=== PATIENT | female | born 1940 | race Caucasian/White ===

== ENCOUNTER 2017-06-07 10:48 | Emergency (ER) | payer OTHER ==
[~2017-06-07] VITALS: Ht 152.4 cm; Wt 34.0 kg
[~2017-06-07 10:48] MED LIST: AMOXICILLIN500 MG PO; TYLENOL WITH C1 EACH PO
[2017-06-07 11:31] LABS: EOSINOPHIL (%) 0 % (0-5); HEMATOCRIT 42.6 % (36.0-46.0); IMMATURE GRANULOCYTE (%) 0.5 % (0.0-0.7); LYMPHOCYTE COUNT 0.5 K/uL (1.0-2.8); MCH 30.4 PG (29.0-34.0); MCHC 33.3 G/DL (30.0-36.0); MCV 91.2 FL (83-99); MEAN PLAT.VOLUME 11.7 uM^3 (9.5-12.4); MONOCYTE (%) 1.7 % (3-12); MONOCYTE COUNT 0.2 K/uL (0-0.8); NEUTROPHIL (%) 91.6 % (45-76); PLATELET COUNT 130 K/uL (156-360); RBC DIS.WIDTH-CV 11.9 % (11.8-14.6); RBC DIS.WIDTH-SD 39.8 % (39-53); RED BLOOD COUNT 4.67 M/uL (3.80-5.20); WHITE BLOOD COUNT 8.8 K/uL (4.1-10.2)
[2017-06-07 11:41] LABS: CHLORIDE 100 mEq/L (99-109); POTASSIUM 4.3 mEq/L (3.7-5.4); SODIUM 141 mEq/L (136-147)
[2017-06-07 11:43] LABS: GLUCOSE 220 mg/dL (70-99)
[2017-06-07 11:44] LABS: ANION GAP 17 MEQ/L (2-14)
[2017-06-07 11:45] LABS: TOTAL BILIRUBIN 0.5 mg/dL (0.0-1.0)
[2017-06-07 11:46] LABS: ALKALINE PHOSPHATASE 71 IU/L (3-129)
[2017-06-07 11:47] LABS: GFR ESTIMATE (CALCULATED) > 59 mL/min/
[2017-06-07 11:48] LABS: UREA NITROGEN (BUN) 21 mg/dL (9-23)
[2017-06-07 11:50] LABS: LIPASE 8 U/L (1.0-51.0)
[2017-06-07 12:34] LABS: BACTERIA NONE SEEN /HPF; EPITHELIAL CELLS RARE /HPF; MUCUS TRACE /LPF; RED BLOOD CELLS 0-5 /HPF (0-5); UNCLASSIFIED CASTS 0-5 /LPF; WHITE BLOOD CELLS 0-5 /HPF (0-5)
[2017-06-07] MEDS ORDERED: ZOFRAN4 MG PO (15:03)
[2017-06-07 15:25] VITALS: BP 147/76
[2017-06-07] MEDS ORDERED: ZETIA10 MG PO (22:08)
[2017-06-07] MEDS ORDERED: IMDUR30 MG PO (22:08)
[2017-06-07] MEDS ORDERED: PRAVACHOL80 MG PO (22:08)
[2017-06-07] MEDS ORDERED: LISINOPRIL5 MG PO (22:08)
[2017-06-07] MEDS ORDERED: LO-DOSE ASPIRIN81 M1 PO (22:08)
[2017-06-07] MEDS ORDERED: CARDIZEM CD,CA120 MG PO (22:08)
[2017-06-07] MEDS ORDERED: NITROSTAT0.4 MG SL (22:09)
== END 2017-06-07 15:48 | disposition home or self-care (01) ==
LOC: EME 10:48
PROVIDERS: Emergency Medicine
DX: R11.2 Nausea with vomiting, unspecified (principal); R10.31 Right lower quadrant pain; R10.32 Left lower quadrant pain; M54.9 Dorsalgia, unspecified; Z95.1 Presence of aortocoronary bypass graft; Z72.0 Tobacco use
CPT/HCPCS: 74177; 80053; 81015; 83690; 85025; 99281; 99285; J2270; J2405; J7040

== ENCOUNTER 2017-06-07 19:44 | Inpatient (IN) | payer OTHER ==
[~2017-06-07] VITALS: Ht 144.8 cm; Wt 46.0 kg
[~2017-06-07 19:44] MED LIST changes: +ZOFRAN4 MG PO
[2017-06-07 20:47] LABS: HEMATOCRIT 41.2 % (36.0-46.0); MCH 30.1 PG (29.0-34.0); MCV 91.2 FL (83-99); MEAN PLAT.VOLUME 11.3 uM^3 (9.5-12.4); PLATELET COUNT 140 K/uL (156-360); RBC DIS.WIDTH-CV 12.1 % (11.8-14.6); RBC DIS.WIDTH-SD 40.6 % (39-53); RED BLOOD COUNT 4.52 M/uL (3.80-5.20)
[2017-06-07 20:57] LABS: CHLORIDE 103 mEq/L (99-109); POTASSIUM 3.7 mEq/L (3.7-5.4); SODIUM 140 mEq/L (136-147)
[2017-06-07 20:58] LABS: GLUCOSE 128 mg/dL (70-99)
[2017-06-07 21:00] LABS: ANION GAP 14 MEQ/L (2-14)
[2017-06-07 21:02] LABS: GFR ESTIMATE (CALCULATED) > 59 mL/min/
[2017-06-07 21:03] LABS: UREA NITROGEN (BUN) 18 mg/dL (9-23)
[2017-06-07] MEDS ORDERED: IMDUR30 MG PO (22:08)
[2017-06-07] MEDS ORDERED: LO-DOSE ASPIRIN81 M1 PO (22:08)
[2017-06-07] MEDS ORDERED: LISINOPRIL5 MG PO (22:08)
[2017-06-07] MEDS ORDERED: PRAVACHOL80 MG PO (22:08)
[2017-06-07] MEDS ORDERED: CARDIZEM CD,CA120 MG PO (22:08)
[2017-06-07] MEDS ORDERED: ZETIA10 MG PO (22:08)
[2017-06-07] MEDS ORDERED: NITROSTAT0.4 MG SL (22:09)
[2017-06-08] VITALS (7 sets, daily range): BP systolic 132–158; BP diastolic 70–88
[2017-06-08 06:48] LABS: ALKALINE PHOSPHATASE 51 IU/L (3-129); DIRECT BILIRUBIN 0.2 mg/dL (0.0-0.3); TOTAL BILIRUBIN 0.5 MG/DL (0.0-1.0)
[2017-06-09] VITALS (9 sets, daily range): BP systolic 74–128; BP diastolic 49–79
[2017-06-09 06:46] LABS: EOSINOPHIL (%) 0 % (0-5); HEMATOCRIT 45.3 % (36.0-46.0); IMMATURE GRANULOCYTE (%) 0.3 % (0.0-0.7); IMMATURE GRANULOCYTE COUNT 0.1 K/uL; LYMPHOCYTE COUNT 0.4 K/uL (1.0-2.8); MCHC 33.3 G/DL (30.0-36.0); MEAN PLAT.VOLUME 11.8 uM^3 (9.5-12.4); MONOCYTE (%) 7.7 % (3-12); MONOCYTE COUNT 1.4 K/uL (0-0.8); NEUTROPHIL (%) 89.6 % (45-76); PLATELET COUNT 173 K/uL (156-360); RBC DIS.WIDTH-CV 12.9 % (11.8-14.6); RBC DIS.WIDTH-SD 44.2 % (39-53); RED BLOOD COUNT 4.87 M/uL (3.80-5.20); WHITE BLOOD COUNT 17.9 K/uL (4.1-10.2)
[2017-06-09 07:08] LABS: ANION GAP 11 MEQ/L (2-14); CHLORIDE 107 MEQ/L (99-109); GFR ESTIMATE (CALCULATED) 46 mL/min/; GLUCOSE 176 mg/dL (70-99); SAMPLE HEMOLYSIS CHECK 0; SAMPLE ICTERIC CHECK 0; SAMPLE LIPEMIA CHECK 0; SODIUM 140 MEQ/L (136-147); UREA NITROGEN (BUN) 35 mg/dL (9-23)
[2017-06-09 23:05] LABS: METH RESISTANT S AUREUS PCR NEGATIVE (NEGATIVE)
[2017-06-09 23:07] LABS: PROBE CHECK PASS; SPECIMEN PROCESSING CONTROL PASS
[2017-06-10] VITALS (25 sets, daily range): BP systolic 80–125; BP diastolic 42–66
[2017-06-10 05:14] LABS: HEMATOCRIT 43.5 % (36.0-46.0); MCH 31.8 PG (29.0-34.0); MCHC 34.3 G/DL (30.0-36.0); MCV 92.8 FL (83-99); RBC DIS.WIDTH-CV 13.2 % (11.8-14.6); RBC DIS.WIDTH-SD 44.4 % (39-53); RED BLOOD COUNT 4.69 M/uL (3.80-5.20); WHITE BLOOD COUNT 8.8 K/uL (4.1-10.2)
[2017-06-10 05:29] LABS: TROP-I INTERPRETATION POSITIVE; TROPONIN-I 1.63 ng/mL (0.0-0.30)
[2017-06-10 05:40] LABS: ABS NEUTROPHIL COUNT 6.6; ANION GAP 8 MEQ/L (2-14); ANISOCYTOSIS 1+; BAND NEUTROPHILS 47.8 % (0-8.0); BURR CELLS 1+; CHLORIDE 109 MEQ/L (99-109); EOSINOPHIL ABS CT 0; GFR ESTIMATE (CALCULATED) 57 mL/min/; INSTRUMENT ABS NEUTROPHIL CT 7.7 K/uL; LYMPHOCYTES 0.9 % (15.0-45.0); MEAN PLAT.VOLUME 12.5 uM^3 (9.5-12.4); METAMYELOCYTES 19.8 %; MICROCYTOSIS 1+; MYELOCYTES 2.7 %; PLAT.SUFFICIENCY DECREASED; POIKILOCYTOSIS 1+; POTASSIUM 4.3 MEQ/L (3.7-5.4); SAMPLE HEMOLYSIS CHECK 0; SAMPLE ICTERIC CHECK 0; SAMPLE LIPEMIA CHECK 0; SODIUM 139 MEQ/L (136-147); SPHEROCYTES 1+; UREA NITROGEN (BUN) 35 mg/dL (9-23)
[2017-06-10 05:41] LABS: GLUCOSE 108 mg/dL (70-99)
[2017-06-10 06:00] LABS: PLATELET COUNT 118 K/uL (156-360)
[2017-06-10 13:00] LABS: TROP-I INTERPRETATION POSITIVE; TROPONIN-I 1.98 ng/mL (0.0-0.30)
[2017-06-10 20:32] LABS: TROP-I INTERPRETATION POSITIVE; TROPONIN-I 1.63 ng/mL (0.0-0.30)
[2017-06-11] VITALS (22 sets, daily range): BP systolic 74–118; BP diastolic 41–65
[2017-06-11 06:02] LABS: ANION GAP 7 MEQ/L (2-14); CHLORIDE 115 MEQ/L (99-109); GFR ESTIMATE (CALCULATED) > 59 mL/min/; MAGNESIUM 2.3 mg/dl (1.3-2.7); SAMPLE HEMOLYSIS CHECK 0; SAMPLE ICTERIC CHECK 0; SAMPLE LIPEMIA CHECK 0; SODIUM 143 MEQ/L (136-147); UREA NITROGEN (BUN) 28 mg/dL (9-23)
[2017-06-11 06:03] LABS: GLUCOSE 48 mg/dL (70-99)
[2017-06-11 06:37] LABS: HEMATOCRIT 33.4 % (36.0-46.0); MCH 30.8 PG (29.0-34.0); MCHC 33.2 G/DL (30.0-36.0); MCV 92.8 FL (83-99); RBC DIS.WIDTH-CV 13.3 % (11.8-14.6); RBC DIS.WIDTH-SD 45.6 % (39-53); WHITE BLOOD COUNT 11.6 K/uL (4.1-10.2)
[2017-06-11 06:57] LABS: ABS NEUTROPHIL COUNT 10.8; ANISOCYTOSIS 1+; BURR CELLS 3+; EOSINOPHIL ABS CT 0; INSTRUMENT ABS NEUTROPHIL CT 10.1 K/uL; LYMPHOCYTES 1.8 % (15.0-45.0); MACROCYTES 1+; MEAN PLAT.VOLUME 12.4 uM^3 (9.5-12.4); METAMYELOCYTES 2.6 %; MYELOCYTES 0.9 %; PLAT.SUFFICIENCY DECREASED; POIKILOCYTOSIS 1+
[2017-06-11 07:02] LABS: BAND NEUTROPHILS 25.4 % (0-8.0); PLATELET COUNT 74 K/uL (156-360); SEG.NEUTROPHILS 67.5 % (46.0-76.0)
[2017-06-11 07:06] LABS: POINT-OF-CARE METER ID UU13113748
[2017-06-11 07:46] LABS: POINT-OF-CARE METER ID UU13113748
[2017-06-11 11:04] LABS: BASE EXCESS 0 mEq/L (-3 to +3); BICARBONATE 23.6 mEq/L (22-26); CARBOXY HGB 1.9 % (0-5); METHEMOGLOBIN 1.9 % (0-1.5); PCO2 34 mm Hg (35-45); PO2 53 mm Hg (80-100); SITE RB; pH 7.45 (7.35-7.45)
[2017-06-11 11:05] LABS: COMMENTS - BLOOD GASES A+C+; DEVICE NC; O2 FLOW 2 L/MIN; TOTAL RESP RATE 22 resp/min
[2017-06-11 16:00] LABS: INTER. NORMALIZED RATIO 2.4; PROTHROMBIN TIME 27.6 SEC (10.2-12.9)
[2017-06-12] VITALS (24 sets, daily range): BP systolic 84–123; BP diastolic 40–60
[2017-06-12 12:57] LABS: ANION GAP 7 MEQ/L (2-14); CHLORIDE 117 MEQ/L (99-109); GFR ESTIMATE (CALCULATED) > 59 mL/min/; POTASSIUM 3.3 MEQ/L (3.7-5.4); SAMPLE HEMOLYSIS CHECK 0; SAMPLE ICTERIC CHECK 0; SAMPLE LIPEMIA CHECK 0; SODIUM 147 MEQ/L (136-147); UREA NITROGEN (BUN) 22 mg/dL (9-23)
[2017-06-12 13:00] LABS: GLUCOSE 185 mg/dL (70-99)
[2017-06-13] VITALS (21 sets, daily range): BP systolic 94–123; BP diastolic 44–61
[2017-06-13 05:52] LABS: HEMATOCRIT 31.5 % (36.0-46.0); MCH 29.4 PG (29.0-34.0); MCHC 31.4 G/DL (30.0-36.0); MCV 93.5 FL (83-99); NRBC (%) 0.1 /100 WBC (0-0); RBC DIS.WIDTH-CV 14.3 % (11.8-14.6); RBC DIS.WIDTH-SD 49.3 % (39-53); RED BLOOD COUNT 3.37 M/uL (3.80-5.20); WHITE BLOOD COUNT 15.9 K/uL (4.1-10.2)
[2017-06-13 06:06] LABS: ALKALINE PHOSPHATASE 43 IU/L (3-129); ANION GAP 8 MEQ/L (2-14); CHLORIDE 117 MEQ/L (99-109); GFR ESTIMATE (CALCULATED) > 59 mL/min/; GLUCOSE 217 mg/dL (70-99); POTASSIUM 3.7 MEQ/L (3.7-5.4); SAMPLE HEMOLYSIS CHECK 0; SAMPLE ICTERIC CHECK 0; SAMPLE LIPEMIA CHECK 0; SODIUM 147 MEQ/L (136-147); UREA NITROGEN (BUN) 24 mg/dL (9-23)
[2017-06-13 06:07] LABS: TOTAL BILIRUBIN 0.7 MG/DL (0.0-1.0)
[2017-06-13 06:29] LABS: ABS NEUTROPHIL COUNT 14.7; ANISOCYTOSIS 1+; BAND NEUTROPHILS 6.1 % (0-8.0); BURR CELLS 2+; EOSINOPHIL ABS CT 0; HEMATOLOGY COMMENT 1 SN; INSTRUMENT ABS NEUTROPHIL CT 13.7 K/uL; LYMPHOCYTES 1.7 % (15.0-45.0); MACROCYTES 1+; MEAN PLAT.VOLUME 13.1 uM^3 (9.5-12.4); METAMYELOCYTES 6.1 %; MICROCYTOSIS 1+; NUCLEATED RBC'S 0.9; PLAT.SUFFICIENCY DECREASED; PLATELET COUNT 55 K/uL (156-360); POIKILOCYTOSIS 2+; POLYCHROMASIA 1+; SEG.NEUTROPHILS 86.1 % (46.0-76.0)
[2017-06-14] VITALS (8 sets, daily range): BP systolic 68–113; BP diastolic 36–54
== END 2017-06-15 03:39 | DRG 329 ==
LOC: EME 19:44 → EDOF 06-08 00:45 → ENRESERV 06-08 00:47 → 2EAST 06-08 01:35 → 5EAST 06-08 10:01 → 4WEST 06-08 10:01 → 2EAST 06-08 10:01 → ENRESERV 06-09 19:26 → CANRESERV 06-09 19:26 → 4WEST 06-09 19:26 → ENRESERV 06-09 19:27 → 4WEST 06-09 21:06 → ENRESERV 06-14 18:01 → CANRESERV 06-14 18:01 → ENRESERV 06-14 18:09 → 5EAST 06-14 19:52
PROVIDERS: Emergency Medicine; Hospitalist; Internal Medicine; Internal Medicine Cardiovascular Disease; Internal Medicine Critical Care Medicine; Specialist
DX: K56.2 Volvulus (principal); A41.9 Sepsis, unspecified organism; K55.042 Diffuse acute infarction of large intestine; R65.21 Severe sepsis with septic shock; R09.02 Hypoxemia; R74.8 Abnormal levels of other serum enzymes; I48.91 Unspecified atrial fibrillation; Z66 Do not resuscitate; Z51.5 Encounter for palliative care; K56.41 Fecal impaction; R64 Cachexia; J44.9 Chronic obstructive pulmonary disease, unspecified; I10 Essential (primary) hypertension; K21.9 Gastro-esophageal reflux disease without esophagitis; I25.10 Atherosclerotic heart disease of native coronary artery without angina pectoris; D69.6 Thrombocytopenia, unspecified; E78.00 Pure hypercholesterolemia, unspecified; E78.5 Hyperlipidemia, unspecified; I70.0 Atherosclerosis of aorta; K57.30 Diverticulosis of large intestine without perforation or abscess without bleeding; F32.9 Major depressive disorder, single episode, unspecified; F17.210 Nicotine dependence, cigarettes, uncomplicated; I25.2 Old myocardial infarction; Z95.1 Presence of aortocoronary bypass graft; Z79.82 Long term (current) use of aspirin; Z68.1 Body mass index [BMI] 19.9 or less, adult
CPT/HCPCS: 31720; 36600; 71010; 74000; 74176; 74177; 76937; 80048; 80053; 80076; 81003; 81015; 82803; 82948; 83605; 83690; 83735; 84100; 84484; 85025; 85027; 85610; 87081; 87641; 88307; 93005; 94002; 94799; 99281; 99285; C1894; J0295; J1100; J1644; J1652; J1885; J2060; J2270; J2405; J2710; J3010; J3480; J7030; J7040; J7050; J7120; P9047; S0028; S0030